=== PATIENT | female | born 1995 | race Two or more races ===

== ENCOUNTER 2022-05-03 15:45 | Inpatient (IN) ==
[2022-05-04] MEDS ORDERED: LIDOCAINE 1% LOCAL 20 ML VIAL INFIL PRN (10:47)
[2022-05-04] MEDS ORDERED: OXYTOCIN 30 UNITS/500 ML BAG IV PRN ×3 (10:47→23:48)
--- NOTE | 2022-05-04 11:05 | History & Physical Report ---
Date of Service May 04, 2022 Assessment & Plan (1) Obesity complicating in third trimester: Plan Induction of labor with Oxytocin planned Admission and Anticipated Discharge Date Admission Date: May 04, 2022 History of Present Illness Chief Complaint: induction of labor Primary Care Provider: Diana Phillip MD 26 F [id number] at 39.4 weeks admitted for induction of labor for Class 3 obesity. Patient has been having some contractions on her own overnight. GBS is negative. Covid is pending. Home Medications Medication Instructions Recorded Confirmed Type ergocalciferol (vitamin D2) 1,000 PO 05/04/22 History unit capsule prenat.vits,rachell,lmv-bafh-rhyco 1 tab PO DAILY 05/04/22 05/04/22 History sertraline 50 mg tablet 75 mg PO DAILY 05/04/22 05/04/22 History Patient History Medical History Gestational hypertension Post depression Vitamin D deficiency OB History x1 pushed 2 hours CUTTING [employer] History neg Review of Systems All systems reviewed & are unremarkable except as noted in HPI & below Physical Exam Constitutional: WD/WN, vitals as above Eyes: PERRL, conjunctivae normal, anicteric sclerae Neck: trachea midline, no thyromegaly Cardiovascular: RRR, no murmur, no edema Rate/Rhythm: regular rate Gastrointestinal (Abdomen): normal bowel sounds, soft, nontender, no hepatosplenomegaly Musculoskeletal: Extremities: extremities normal to inspection Skin: no rashes, warm and dry Neurologic: patellar DTR's 2+ bilat, sensation intact Psychiatric: A+Ox3, euthymic affect Genitourinary: no vaginal lesions, no adnexal mass Manual OB Exam: + cervical dilation 3 cm, + cervical effacement 50% and + station high OB Exam Monitor Tracing: + external FHT monitor used, + external uterine monitor used, + category I and + normal FHT variability EFW 8 lbs. Results & Data ([facility]) Vital Signs (Past 12 Hours) Vital Signs Pulse BP 05/04/22 10:55 111 H 124/79
[2022-05-04] MEDS ORDERED: Patient's ALLERGY Info needs ENTERED SCH (11:15)
[2022-05-04 12:00] LABS: Hematocrit (blood only) 40.7 % (34.1-44.9); Hemoglobin 13.5 g/dl (12.0-16.0); Mean Corpuscular Hemoglobin 30.1 pg (25.0-34.0); Mean Corpuscular Hgb Conc 33.2 g/dL (32.0-36.0); Mean Corpuscular Volume 90.8 fL (80.0-100.0); Mean Platelet Volume 11.5 fL (9.4-12.3); Platelet Count 205 K/uL (130-400); RDW Coefficient of Variation 13.8 % (11.5-14.5); RDW Standard Deviation 45.7 fL (36.4-46.3); Red Blood Count 4.48 M/uL (3.93-5.22); White Blood Count 7.29 K/ul (4.8-10.8)
[2022-05-04] MEDS: LACTATED RINGER'S 1,000 ML IV PRN ×4 (12:42→18:58)
[2022-05-04] MEDS ORDERED: ePHEDrine sulfate 50 MG/ML AMP ONE (15:05)
[2022-05-04] MEDS ORDERED: fentaNYL citrate 100 MCG/2 ML VIAL ONE (15:05)
[2022-05-04] MEDS ORDERED: SODIUM CHLORIDE 0.9% INJ 10 ML VIAL ONE (15:06)
[2022-05-04] MEDS ORDERED: LIDOCAINE 2%/EPINEPHRINE 1:200,000 20 ML SDV ONE (15:06)
[2022-05-04] MEDS ORDERED: BUPIVACAINE 0.25% 30 ML VIAL ONE (15:06)
[2022-05-04] MEDS ORDERED: fentaNYL 2MCG/ML ROPIVACAINE 1.25MG/ML 100 ML BAG EPI ONE (15:07)
--- NOTE | 2022-05-04 15:17 | Labor Progress Brief Note ---
Date of Service May 04, 2022 Assessment & Plan Admission and Anticipated Discharge Date Admission Date: May 04, 2022 Physical Exam Genitourinary: Manual OB Exam: + cervical dilation 3 cm, + cervical effacement 50% and + station high OB Exam Monitor Tracing: + external FHT monitor used, + external uterine monitor used, + category I and + normal FHT variability Results & Data ([facility]) Vital Signs (Past 12 Hours) Vital Signs Temp Pulse Resp BP 05/04/22 11:12 37 C 20 05/04/22 12:46 37.0 C 05/04/22 14:34 37.0 C 74 130/75 05/04/22 12:45 88 132/71 05/04/22 10:55 111 H 124/79
[2022-05-04] MEDS ORDERED: BUTORPHANOL TARTRATE 1 MG/ML VIAL IV PRN (15:26)
--- NOTE | 2022-05-04 17:14 | Labor Progress Brief Note ---
Date of Service May 04, 2022 Assessment & Plan Admission and Anticipated Discharge Date Admission Date: May 04, 2022 Physical Exam Genitourinary: Manual OB Exam: + cervical dilation 4 cm and 5 cm, + cervical effacement 70%, + station -2 and + amniotic fluid clear OB Exam Monitor Tracing: + external FHT monitor used, + external uterine monitor used, + category I, + normal FHT variability and + variable decelerations scalp electrode applied IUPC placed with no complications Results & Data ([facility]) Vital Signs (Past 12 Hours) Vital Signs Temp Pulse Resp BP Pulse Ox 05/04/22 11:12 37 C 20 05/04/22 17:10 85 98 05/04/22 17:11 81 152/67 H 05/04/22 17:08 76 152/80 H 05/04/22 17:06 94 H 149/88 H 05/04/22 17:05 93 H 98 05/04/22 17:04 88 151/88 H 05/04/22 17:02 76 149/88 H 05/04/22 17:00 97 05/04/22 17:00 81 05/04/22 17:00 80 151/92 H 05/04/22 16:59 82 146/89 H 05/04/22 16:55 97 05/04/22 16:55 86 05/04/22 16:55 80 155/86 H 91 05/04/22 16:52 83 143/83 H 05/04/22 16:50 102 H 99 05/04/22 16:47 85 154/105 H 05/04/22 16:45 94 H 98 05/04/22 16:40 97 05/04/22 16:40 94 H 05/04/22 16:40 82 133/79 05/04/22 15:32 75 132/64 05/04/22 12:46 37.0 C 05/04/22 14:34 37.0 C 74 130/75 05/04/22 12:45 88 132/71 05/04/22 10:55 111 H 124/79
--- NOTE | 2022-05-04 17:21 | Anesthesiology Consultation ---
Date of Service May 04, 2022 Assessment & Plan Chart Review Chart Review: Acceptable Risk for Labor Epidural Consults Requested none History Height/Weight Height: 5 ft 8 in Weight: 142.428 kg Allergies Allergy/AdvReac Type Severity Reaction Status Date / Time latex AdvReac Mild Rash Verified 05/04/22 11:10 Medications Home Medications Medication Instructions Recorded Confirmed Last Taken ergocalciferol (vitamin D2) 1,000 PO 05/04/22 Unknown unit capsule prenat.vits,rachell,ydz-brco-lpwza 1 tab PO DAILY 05/04/22 05/04/22 05/03/22 1 tab sertraline 50 mg tablet 75 mg PO DAILY 05/04/22 05/04/22 05/03/22 75 mg Active Medications Generic Name Dose Route Start Last Admin Trade Name Freq PRN Reason Stop Dose Admin Butorphanol Tartrate 1 mg 05/04/22 15:26 05/04/22 15:41 Butorphanol Tartrate 1 Mg/Ml Vial IV 06/03/22 15:25 1 mg Q2HWA PRN Administration Pain Lactated Ringer's 1,000 mls @ 125 mls/hr 05/04/22 10:47 05/04/22 16:44 Lr IV 05/06/22 10:46 999 mls/hr .Q8H PRN Administration L&D Protocol Protocol Oxytocin 30 units in 500 mls @ 5 mls/hr 05/04/22 10:59 05/04/22 15:12 Pitocin IV 05/06/22 10:58 0.3 units/hr .Q24H PRN 5 mls/hr Labor Induction/Augmentation Titration Protocol 0.3 UNITS/HR Past Medical History Medical History Gestational hypertension Post depression Vitamin D deficiency Past Family History Family History (Updated 05/04/22 @ 11:06 by Geeta Krishnamurthy RN) Father Hypertension Other No history of previous surgery Social History Smoking Status: Never smoker Hx Alcohol Use: No Hx Substance Use: No Physical Exam Vital Signs Last Vital Signs Temp 37.0 C 05/04/22 14:34 Pulse 94 H 05/04/22 17:19 Resp 20 05/04/22 11:12 BP 130/73 05/04/22 17:19 Pulse Ox 97 05/04/22 17:15 Testing Laboratory Results 05/04/22 11:34 Blood Type O Positive 05/04/22 11:34 Antibody Screen NEGATIVE 05/04/22 11:34
[2022-05-04] MEDS ORDERED: NALOXONE HCL 0.4 MG/1 ML VIAL/CARP IV PRN (17:22)
[2022-05-04] MEDS ORDERED: ePHEDrine sulfate 50 MG/ML AMP IV PRN (17:22)
[2022-05-04] MEDS ORDERED: NALBUPHINE HCL INJ 10 MG/ML AMP IV PRN (17:22)
[2022-05-04] MEDS ORDERED: fentaNYL 2MCG/ML ROPIVACAINE 1.25MG/ML 100 ML BAG EPI PRN (17:22)
[2022-05-04] MEDS ORDERED: NALOXONE HCL 1 MG in SODIUM CHLORIDE 0.9% 1000ML 1,000 ML IV PRN (17:22)
[2022-05-04] MEDS ORDERED: diphenhydrAMINE 50 MG/ML VIAL IV PRN (17:22)
--- NOTE | 2022-05-04 20:16 | Labor Progress Brief Note ---
Date of Service May 04, 2022 Assessment & Plan Admission and Anticipated Discharge Date Admission Date: May 04, 2022 Physical Exam Genitourinary: Manual OB Exam: + cervical dilation 5 cm and 6 cm, + cervical effacement 70%, + station -2 and + amniotic fluid clear OB Exam Monitor Tracing: + scalp electrode used, + intra-uterine pressure catheter used, + category I and + normal FHT variability Results & Data ([facility]) Vital Signs (Past 12 Hours) Vital Signs Temp Pulse Resp BP Pulse Ox 05/04/22 11:12 37 C 20 05/04/22 20:10 98 H 98 05/04/22 20:05 99 05/04/22 20:05 88 05/04/22 20:05 77 127/74 05/04/22 20:00 82 98 05/04/22 19:55 80 98 05/04/22 19:50 85 100 05/04/22 19:49 80 128/74 05/04/22 19:45 80 99 05/04/22 19:40 76 99 05/04/22 19:35 76 98 05/04/22 19:34 82 122/71 05/04/22 19:30 77 98 05/04/22 19:25 82 98 05/04/22 19:20 80 99 05/04/22 19:19 76 117/67 05/04/22 19:15 74 100 05/04/22 19:10 75 99 05/04/22 19:05 82 100 05/04/22 19:04 36.8 C 74 19 128/75 05/04/22 19:00 80 100 05/04/22 18:56 74 125/72 05/04/22 18:55 75 100 05/04/22 18:50 71 100 05/04/22 18:45 79 100 05/04/22 18:40 72 100 05/04/22 18:35 100 05/04/22 18:35 75 05/04/22 18:35 70 120/65 05/04/22 17:45 18 05/04/22 17:45 18 05/04/22 18:30 74 100 05/04/22 18:25 79 100 05/04/22 18:20 79 100 05/04/22 18:19 77 18 115/96 05/04/22 18:15 82 100 05/04/22 18:10 84 100 05/04/22 18:05 81 100 05/04/22 18:03 74 121/76 05/04/22 18:00 93 H 100 05/04/22 17:58 75 120/69 05/04/22 17:55 78 100 05/04/22 17:45 18 05/04/22 17:45 18 05/04/22 17:53 81 18 123/63 05/04/22 17:50 100 05/04/22 17:50 74 05/04/22 17:50 75 18 120/63 05/04/22 17:48 83 20 115/56 L 05/04/22 17:45 77 18 100 05/04/22 17:43 75 18 118/59 L 05/04/22 17:40 79 100 05/04/22 17:39 81 112/58 L 05/04/22 17:35 94 H 100 05/04/22 17:36 85 18 122/67 05/04/22 17:30 81 100 05/04/22 17:27 82 18 137/59 L 05/04/22 17:25 89 98 05/04/22 17:24 84 151/67 H 05/04/22 17:22 36.9 C 85 18 147/66 H 05/04/22 17:21 83 145/74 H 05/04/22 17:20 93 H 98 05/04/22 17:19 94 H 18 130/73 05/04/22 17:17 88 16 153/82 H 05/04/22 17:15 97 05/04/22 17:15 85 05/04/22 17:15 86 18 130/65 05/04/22 17:10 85 18 98 05/04/22 17:11 81 152/67 H 05/04/22 17:08 76 18 152/80 H 05/04/22 17:06 94 H 18 149/88 H 05/04/22 17:05 93 H 98 05/04/22 17:04 88 18 151/88 H 05/04/22 17:02 76 18 149/88 H 05/04/22 17:00 97 05/04/22 17:00 81 05/04/22 17:00 80 151/92 H 05/04/22 16:59 82 18 146/89 H 05/04/22 16:55 97 05/04/22 16:55 86 05/04/22 16:55 80 155/86 H 91 05/04/22 16:52 83 143/83 H 05/04/22 16:50 102 H 99 05/04/22 16:47 85 154/105 H 05/04/22 16:45 94 H 98 05/04/22 16:40 97 05/04/22 16:40 94 H 05/04/22 16:40 82 133/79 05/04/22 15:32 75 132/64 05/04/22 12:46 37.0 C 05/04/22 14:34 37.0 C 74 130/75 05/04/22 12:45 88 132/71 05/04/22 10:55 111 H 124/79
[2022-05-04] MEDS ORDERED: NURSING L&D Epidural Breakthrough Pain Update ONE (21:38)
--- NOTE | 2022-05-04 23:27 | Delivery Summary ---
Vaginal Delivery Summary Date of Service May 04, 2022 Vaginal Delivery Summary Delivery Note live female ENID over intact perineum with nuchal cord x2 reduced at delivery. Apgars and weight pending. Placenta delivered spontaneously and intact. No tears. EBL 100 ml. Final sponge and instrument count are correct. Mom and baby stable.
[2022-05-04] MEDS ORDERED: BENZOCAINE 20% AER SPR 82.5 GM CAN EXT PRN (23:48)
[2022-05-04] MEDS ORDERED: HYDROCORTISONE ACETATE 25 MG SUPP PR PRN (23:48)
[2022-05-04] MEDS ORDERED: DIPHTHERIA/TETANUS/PERTUSSIS 0.5 ML SYR/VIAL IM ONE (23:48)
--- NOTE | 2022-05-04 23:54 | Anesthesia Procedure Note ---
Date of Service May 04, 2022 Anesthesia Post Epidural Note Vital Signs Vital Signs: Temp Pulse Resp BP Pulse Ox 37.1 C 107 H 18 132/66 95 05/04/22 21:00 05/04/22 23:46 05/04/22 23:31 05/04/22 23:46 05/04/22 23:05 Pain Intensity Abdomen: Pain Intensity: 0 Notes Mental Status: alert / awake / arousable Nausea / Vomiting: adequately controlled Pain: adequately controlled Airway Patency, RR, SpO2: stable & adequate BP & HR: stable & adequate Hydration State: stable & adequate Neuraxial Anesthesia: was administered and sensory block is resolving Anesthetic Complications: no major complications apparent and Pt Satisfied with anesthetic care Epidural: Removed without complications and With tip intact
[2022-05-05] MEDS: IBUPROFEN 600 MG TAB PO PRN ×2 (05:33→13:14)
[2022-05-05 06:53] LABS: Hemoglobin 11.7 g/dl (12.0-16.0); Mean Corpuscular Hemoglobin 30.5 pg (25.0-34.0); Mean Corpuscular Hgb Conc 33.4 g/dL (32.0-36.0); Mean Corpuscular Volume 91.1 fL (80.0-100.0); Mean Platelet Volume 11.9 fL (9.4-12.3); Platelet Count 188 K/uL (130-400); RDW Coefficient of Variation 13.8 % (11.5-14.5); RDW Standard Deviation 46.1 fL (36.4-46.3); Red Blood Count 3.84 M/uL (3.93-5.22); White Blood Count 10.55 K/ul (4.8-10.8)
[2022-05-05] MEDS: DOCUSATE SODIUM 100 MG CAP PO SCH ×2 (08:20→20:46)
[2022-05-05] MEDS: FERROUS SULFATE 325 MG TAB PO SCH (08:20)
[2022-05-05] MEDS: PRENATAL VITAMIN 1 TAB PO SCH (08:20)
[2022-05-05] MEDS: ACETAMINOPHEN 325 MG TAB PO PRN ×2 (08:20→20:48)
[2022-05-05] MEDS: SERTRALINE HCL 50 MG TABLET PO SCH (08:43)
[2022-05-05] MEDS ORDERED: NON-FORMULARY MEDICATION (Prenat.Vits,Cal,Min-Iron-Folic Tablet) PO SCH (09:00)
[2022-05-05] MEDS ORDERED: bisacodyL 5 MG TABEC PO SCH (20:00)
[2022-05-06] MEDS ORDERED: bisacodyL 10 MG SUPP PR PRN
[2022-05-06 07:49] LABS: Hematocrit (blood only) 34.9 % (34.1-44.9); Hemoglobin 11.7 g/dl (12.0-16.0)
[2022-05-06] MEDS: PRENATAL VITAMIN 1 TAB PO SCH (08:06)
[2022-05-06] MEDS: DOCUSATE SODIUM 100 MG CAP PO SCH (08:06)
[2022-05-06] MEDS: FERROUS SULFATE 325 MG TAB PO SCH (08:06)
[2022-05-06] MEDS: IBUPROFEN 600 MG TAB PO PRN (08:06)
[2022-05-06] MEDS: SERTRALINE HCL 50 MG TABLET PO SCH (09:05)
--- NOTE | 2022-05-06 10:09 | Obstetrical Progress Note ---
Date of Service May 06, 2022 Assessment & Plan (1) Normal course: PPD #1 pt doing well anticipate disch tomorrow Results & Data ([facility]) Vital Signs (Past 12 Hours) Vital Signs Temp Pulse Resp BP Pulse Ox O2 Del Method 05/06/22 07:45 36.5 C 74 16 147/83 H 98 Room Air 05/06/22 03:30 36.8 C 80 18 129/85 96 Room Air
--- NOTE | 2022-05-06 10:13 | Obstetrical Progress Note ---
Date of Service May 06, 2022 Assessment & Plan (1) Normal course: Plan PPD 32 pt doing well d/c home with instructions Results & Data ([facility]) Vital Signs (Past 12 Hours) Vital Signs Temp Pulse Resp BP Pulse Ox O2 Del Method 05/06/22 07:45 36.5 C 74 16 147/83 H 98 Room Air 05/06/22 03:30 36.8 C 80 18 129/85 96 Room Air
[2022-05-07] MEDS ORDERED: bisacodyL 10 MG SUPP PR PRN
== END 2022-05-06 12:10 | disposition home health service (06) | DRG 807 ==
LOC: 4S1 05-04 10:38 → 4E2 05-05 01:53